=== PATIENT | female | born 1970 | race Asian ===

== ENCOUNTER → 2018-08-18 | Outpatient (CLI) | payer BC ==
[2018-08-18 08:55] LABS: Basophils # (auto) 0.1 uL; Basophils % (auto) 0.9 % (0.0-2.0); Eosinophils # (auto) 0.1 uL; Eosinophils % (auto) 2.3 % (0.0-7.0); Hematocrit 42.2 % (36.0-46.0); Hemoglobin 14.4 g/dL (12.2-16.2); Lymphocytes # (auto) 1.8 uL; Lymphocytes % (auto) 31.9 % (10.0-50.0); Mean Corpuscular Hemoglobin 30.9 pg (28.0-32.0); Mean Corpuscular Hgb Conc. 34.1 g/dL (32.0-36.0); Mean Corpuscular Volume 90.6 fL (80.0-100.0); Monocytes # (auto) 0.4 uL; Neutrophils # (auto) 3.2 uL; Neutrophils % (auto) 56.9 % (37.0-80.0); Platelet Count (auto) 323 10^3/uL (140-450); Red Blood Cells 4.66 10^6/uL (4.0-5.20); Red Cell Distribution Width 13.1 % (11.8-14.3); White Blood Cell 5.6 10^3/uL (4.4-10.8)
[2018-08-18 09:02] LABS: Urine Bacteria FEW /hpf (None Seen); Urine Blood Negative /uL (Negative); Urine Specific Gravity 1.017 (1.001-1.035); Urine WBC <1 /hpf (0 - 5)
[2018-08-18 09:43] LABS: Albumin 4.2 g/dL (3.4-5.0); Potassium 4.1 mmol/L (3.5-5.1)
[2018-08-18 09:52] LABS: BUN/Creatinine Ratio 8.7; Bilirubin, Total 0.9 mg/dL (0.2-1.0); Total Protein 7.7 g/dL (6.4-8.2)
== END | disposition home or self-care (01) ==
LOC: LAB 08:36
PROVIDERS: ATTEND Internal Medicine
DX: D24.9 Benign neoplasm of unspecified breast (principal)
CPT/HCPCS: 36415; 80053; 80061; 81001; 84439; 84443; 85025; 85652

== ENCOUNTER → 2018-09-16 | Outpatient (CLI) | payer BC | END | disposition home or self-care (01) | LOC: US 13:07 | PROVIDERS: ATTEND Internal Medicine | DX: D24.2 Benign neoplasm of left breast (principal); N63.21 Unspecified lump in the left breast, upper outer quadrant | CPT/HCPCS: 10022; 19083; 19084; 76942 ==

== ENCOUNTER → 2018-10-06 | Outpatient (CLI) | payer BC | END | disposition home or self-care (01) | LOC: XYW 11:30 | DX: S02.5XXA Fracture of tooth (traumatic), initial encounter for closed fracture (principal); K05.6 Periodontal disease, unspecified; M27.0 Developmental disorders of jaws; J34.2 Deviated nasal septum; X58.XXXA Exposure to other specified factors, initial encounter; Y93.89 Activity, other specified; Y92.89 Other specified places as the place of occurrence of the external cause; Y99.8 Other external cause status | CPT/HCPCS: 70486 ==

== ENCOUNTER 2021-05-03 06:17 | Inpatient (IN) | payer BC ==
[2021-04-30 10:53] LABS: Basophils # (auto) 0.1 10 ^3/uL (0-0.2); Eosinophils # (auto) 0.2 10 ^3/uL (0-0.8); Eosinophils % (auto) 2.1 % (0.0-7.0); Hematocrit 36.7 % (36.0-46.0); Hemoglobin 12.4 g/dL (12.2-16.2); Lymphocytes # (auto) 2.2 10 ^3/uL (0.4-5.4); Lymphocytes % (auto) 25.3 % (10.0-50.0); Mean Corpuscular Hemoglobin 28.7 pg (28.0-32.0); Mean Corpuscular Hgb Conc. 33.7 g/dL (32.0-36.0); Mean Corpuscular Volume 85.2 fL (80.0-100.0); Monocytes # (auto) 0.4 10 ^3/uL (0-1.3); Monocytes % (auto) 5.1 % (0.0-12.0); Neutrophils # (auto) 5.7 10 ^3/uL (1.6-8.6); Neutrophils % (auto) 66.5 % (37.0-80.0); Nucleated Red Blood Cells % 0.2 %; Red Blood Cells 4.31 10^6/uL (4.0-5.20); Red Cell Distribution Width 15.1 % (11.8-14.3); White Blood Cell 8.5 10^3/uL (4.4-10.8)
[2021-04-30 11:08] LABS: INR 1.09 (0.9-1.15); Partial Thromboplastin Time 28.7 sec (23.6-33.0)
[2021-04-30 11:28] LABS: Albumin 3.9 g/dL (3.4-5.0); Calcium 9.7 mg/dL (8.5-10.1); Potassium 4.1 mmol/L (3.5-5.1)
[2021-04-30 11:31] LABS: Bilirubin, Total 0.3 mg/dL (0.2-1.0); Total Protein 7.6 g/dL (6.4-8.2)
[~2021-05-03] VITALS: Ht 157.5 cm; Wt 59.1 kg
[~2021-05-03 06:17] MED LIST: FER325T PO; MULT-690 PO
[2021-05-03] MEDS ORDERED: ceFAZolin 1GM/50ML 50 ML IV ONE (06:27)
[2021-05-03] MEDS ORDERED: BUPIVACAINE 0.25% INJ 50ML VIAL ONE (07:03)
[2021-05-03] MEDS ORDERED: MIDAZOLAM HCL 2MG/2ML 2ml VIAL (1mg/ml) ONE (07:19)
[2021-05-03] MEDS ORDERED: fentaNYL CITRATE 100 MCG/2 ML VL ONE (07:19)
[2021-05-03] MEDS ORDERED: MEPERIDINE HCL (50 MG/ML) 1 ML VIAL ONE (07:19)
[2021-05-03] MEDS ORDERED: FUROSEMIDE 20 MG/2 ML VIAL ONE (07:20)
[2021-05-03] MEDS ORDERED: DexAMETHasone SOD PHOS 10MG/1ML VIAL INJ ONE (07:20)
[2021-05-03] MEDS ORDERED: PROPOFOL 10 MG/ML 20 ML IV ONE (07:26)
[2021-05-03] MEDS ORDERED: fentaNYL CITRATE 5 ML ONE (07:27)
[2021-05-03] MEDS ORDERED: ROCURONIUM 10MG/ML 10ML VIAL IV ONE (08:04)
[2021-05-03] MEDS ORDERED: MORPHINE SULFATE 4 MG/ML SYR/VIAL IV PRN ×2 (09:00→09:30)
[2021-05-03] MEDS ORDERED: NITROGLYCERIN 0.4 MG SL TAB SL PRN (09:00)
[2021-05-03] MEDS ORDERED: MORPHINE SULFATE INJECTION 2 MG/ML SYRG IV PRN ×2 (09:00)
[2021-05-03] MEDS ORDERED: MIDAZOLAM HCL 2MG/2ML 2ml VIAL (1mg/ml) IV PRN (09:30)
[2021-05-03] MEDS ORDERED: HYDROmorphone HCL 2 MG/ML VL IV PRN (09:30)
[2021-05-03] MEDS ORDERED: ePHEDrine SULFATE 50 MG/ML AMP IV PRN (09:30)
[2021-05-03] MEDS ORDERED: KETOROLAC TROMETH 30 MG/ML 1ML VIAL IV ONE (09:30)
[2021-05-03] MEDS ORDERED: ONDANSETRON HCL 4 MG/2 ML VIAL IV PRN (09:30)
[2021-05-03] MEDS ORDERED: LABETALOL HCL 5 MG/ML 4ML SYRINGE IV PRN (09:30)
[2021-05-03 11:39] VITALS: BP 109/77
[2021-05-03 13:00] VITALS: BP 123/77
[2021-05-03] MEDS: ceFAZolin 1GM/50ML 50 ML IV SCH ×2 (14:00→22:24)
[2021-05-03] MEDS: HYDROcodone-ACET 5/325MG TAB PO PRN (14:27)
[2021-05-03] MEDS: ONDANSETRON HCL 4 MG/2 ML VIAL IV PRN ×2 (14:28→21:56)
[2021-05-03 16:42] VITALS: BP 136/73
[2021-05-03 22:00] VITALS: BP 130/80
[2021-05-03] MEDS: GABAPENTIN 100 MG CAP PO SCH (22:00)
[2021-05-03] MEDS: KETOROLAC TROMETH 30 MG/ML 1ML VIAL IV PRN (22:24)
[2021-05-04 05:00] VITALS: BP 108/73
[2021-05-04] MEDS: ceFAZolin 1GM/50ML 50 ML IV SCH (06:35)
[2021-05-04 09:00] VITALS: BP 131/80
[2021-05-04] MEDS: KETOROLAC TROMETH 30 MG/ML 1ML VIAL IV PRN ×2 (12:10→18:21)
[2021-05-04 12:40] VITALS: BP 140/72
[2021-05-04] MEDS: DOCUSATE SOD 100 MG CAP PO SCH ×2 (14:08→21:31)
[2021-05-04 17:00] VITALS: BP 122/81
[2021-05-04] MEDS: GABAPENTIN 100 MG CAP PO SCH (21:31)
[2021-05-04 22:00] VITALS: BP 119/70
[2021-05-05] MEDS: KETOROLAC TROMETH 30 MG/ML 1ML VIAL IV PRN ×2 (00:02→06:12)
[2021-05-05 05:17] VITALS: BP 118/89
[2021-05-05] MEDS: DOCUSATE SOD 100 MG CAP PO SCH (08:32)
[2021-05-05] MEDS ORDERED: HYDR-4902 PO (08:35)
[2021-05-05] MEDS ORDERED: DOCU-94 PO (08:35)
[2021-05-05] MEDS ORDERED: IBUP800T27 PO (08:35)
[2021-05-05] MEDS ORDERED: ONDA-144 PO (08:35)
[2021-05-05] MEDS ORDERED: TRAM50TA2 PO (08:42)
[2021-05-05 09:00] VITALS: BP 121/90
[2021-05-05] MEDS: HYDROcodone-ACET 5/325MG TAB PO PRN (09:47)
== END 2021-05-05 11:35 | disposition home or self-care (01) | DRG 743 ==
LOC: SUR 06:17 → EEVIPCON 08:56 → OVERFLOW 08:56 → CENTRAL 09:32
PROVIDERS: ADMIT Obstetrics & Gynecology; ATTEND Obstetrics & Gynecology
PROC: 0UT70ZZ Resection of Bilateral Fallopian Tubes, Open Approach (ICD-10-PCS; 2021-05-03)
PROC: 0UT20ZZ Resection of Bilateral Ovaries, Open Approach (ICD-10-PCS; 2021-05-03)
PROC: 0UTC0ZZ Resection of Cervix, Open Approach (ICD-10-PCS; 2021-05-03)
PROC: 0UT90ZZ Resection of Uterus, Open Approach (ICD-10-PCS; principal; 2021-05-03 07:27)
DX: N93.9 Abnormal uterine and vaginal bleeding, unspecified (principal); N85.2 Hypertrophy of uterus; Z20.822 Contact with and (suspected) exposure to COVID-19
CPT/HCPCS: 36415; 80053; 81025; 84702; 85025; 85610; 85730; 86850; 86900; 86901; G0378; J0690; J1100; J1885; J2250; J2405; J2704; J3490

== ENCOUNTER → 2021-06-14 | Outpatient (CLI) | payer BC ==
[~2021-06-14] MED LIST changes: +DOCU-94 PO; +IBUP800T27 PO; +ONDA-144 PO
[2021-06-14 11:04] LABS: Basophils # (auto) 0.1 10 ^3/uL (0-0.2); Basophils % (auto) 1.6 % (0.0-2.0); Eosinophils # (auto) 0.2 10 ^3/uL (0-0.8); Eosinophils % (auto) 2.8 % (0.0-7.0); Hematocrit 39.2 % (36.0-46.0); Hemoglobin 13.2 g/dL (12.2-16.2); Lymphocytes # (auto) 2.2 10 ^3/uL (0.4-5.4); Lymphocytes % (auto) 37.3 % (10.0-50.0); Mean Corpuscular Hemoglobin 28.6 pg (28.0-32.0); Mean Corpuscular Hgb Conc. 33.8 g/dL (32.0-36.0); Mean Corpuscular Volume 84.6 fL (80.0-100.0); Monocytes # (auto) 0.4 10 ^3/uL (0-1.3); Monocytes % (auto) 6.6 % (0.0-12.0); Neutrophils # (auto) 3.1 10 ^3/uL (1.6-8.6); Neutrophils % (auto) 51.7 % (37.0-80.0); Nucleated Red Blood Cells % 0.1 %; Red Blood Cells 4.63 10^6/uL (4.0-5.20); Red Cell Distribution Width 14.6 % (11.8-14.3)
== END | disposition home or self-care (01) ==
LOC: LAB 10:28
PROVIDERS: ATTEND Obstetrics & Gynecology
DX: D69.9 Hemorrhagic condition, unspecified (principal)
CPT/HCPCS: 36415; 85025

== ENCOUNTER → 2021-10-16 | Outpatient (CLI) | payer BC ==
[2021-10-16 11:59] LABS: Basophils # (auto) 0.1 10 ^3/uL (0-0.2); Basophils % (auto) 0.7 % (0.0-2.0); Eosinophils # (auto) 0.2 10 ^3/uL (0-0.8); Eosinophils % (auto) 3.1 % (0.0-7.0); Hematocrit 37.8 % (36.0-46.0); Hemoglobin 12.9 g/dL (12.2-16.2); Lymphocytes # (auto) 1.7 10 ^3/uL (0.4-5.4); Lymphocytes % (auto) 23.1 % (10.0-50.0); Mean Corpuscular Hgb Conc. 34.1 g/dL (32.0-36.0); Mean Corpuscular Volume 87.9 fL (80.0-100.0); Monocytes # (auto) 0.4 10 ^3/uL (0-1.3); Monocytes % (auto) 5.1 % (0.0-12.0); Neutrophils # (auto) 5.1 10 ^3/uL (1.6-8.6); Nucleated Red Blood Cells % 0.1 %; Red Blood Cells 4.31 10^6/uL (4.0-5.20); Red Cell Distribution Width 13.3 % (11.8-14.3); White Blood Cell 7.5 10^3/uL (4.4-10.8)
[2021-10-16 12:09] LABS: Urine Blood Negative /uL (Negative); Urine Specific Gravity 1.023 (1.001-1.035)
[2021-10-16 12:12] LABS: Albumin 3.5 g/dL (3.4-5.0); Calcium 9.5 mg/dL (8.5-10.1); Potassium 3.7 mmol/L (3.5-5.1)
[2021-10-16 12:16] LABS: Bilirubin, Total 0.5 mg/dL (0.2-1.0); Total Protein 8.2 g/dL (6.4-8.2)
== END | disposition home or self-care (01) ==
LOC: LAB 11:38
PROVIDERS: ATTEND Internal Medicine
DX: R53.83 Other fatigue (principal)
CPT/HCPCS: 36415; 80053; 81003; 85025; C9803; U0003

== ENCOUNTER → 2021-10-25 | Outpatient (CLI) | payer BC ==
[2021-10-25 11:16] LABS: Basophils # (auto) 0.1 10 ^3/uL (0-0.2); Basophils % (auto) 0.6 % (0.0-2.0); Eosinophils # (auto) 0.1 10 ^3/uL (0-0.8); Hematocrit 37.8 % (36.0-46.0); Hemoglobin 12.6 g/dL (12.2-16.2); Lymphocytes # (auto) 1.7 10 ^3/uL (0.4-5.4); Lymphocytes % (auto) 17.3 % (10.0-50.0); Mean Corpuscular Volume 87.4 fL (80.0-100.0); Red Blood Cells 4.32 10^6/uL (4.0-5.20)
[2021-10-25 11:20] LABS: Eosinophils % (auto) 1.1 % (0.0-7.0); Mean Corpuscular Hemoglobin 29.2 pg (28.0-32.0); Mean Corpuscular Hgb Conc. 33.4 g/dL (32.0-36.0); Monocytes # (auto) 0.5 10 ^3/uL (0-1.3); Monocytes % (auto) 5.5 % (0.0-12.0); Neutrophils # (auto) 7.4 10 ^3/uL (1.6-8.6); Neutrophils % (auto) 75.5 % (37.0-80.0); Red Cell Distribution Width 12.8 % (11.8-14.3); White Blood Cell 9.8 10^3/uL (4.4-10.8)
[2021-10-25 11:22] LABS: Urine Blood Negative /uL (Negative)
== END | disposition home or self-care (01) ==
LOC: LAB 10:57
PROVIDERS: ATTEND Internal Medicine
DX: R53.83 Other fatigue (principal)
CPT/HCPCS: 36415; 81003; 83615; 85025; 85652; 86141

== ENCOUNTER → 2021-11-08 | Outpatient (CLI) | payer BC ==
[2021-11-08 09:00] LABS: Basophils # (auto) 0 10 ^3/uL (0-0.2); Eosinophils # (auto) 0.1 10 ^3/uL (0-0.8); Hemoglobin 12.2 g/dL (12.2-16.2); Red Cell Distribution Width 12.8 % (11.8-14.3)
[2021-11-08 09:02] LABS: Basophils % (auto) 0.4 % (0.0-2.0); Eosinophils % (auto) 2.3 % (0.0-7.0); Hematocrit 35.9 % (36.0-46.0); Lymphocytes # (auto) 1.9 10 ^3/uL (0.4-5.4); Lymphocytes % (auto) 30.4 % (10.0-50.0); Mean Corpuscular Hemoglobin 29.1 pg (28.0-32.0); Mean Corpuscular Volume 85.7 fL (80.0-100.0); Monocytes # (auto) 0.4 10 ^3/uL (0-1.3); Monocytes % (auto) 7.3 % (0.0-12.0); Neutrophils # (auto) 3.7 10 ^3/uL (1.6-8.6); Neutrophils % (auto) 59.6 % (37.0-80.0); Red Blood Cells 4.19 10^6/uL (4.0-5.20); White Blood Cell 6.2 10^3/uL (4.4-10.8)
[2021-11-08 09:12] LABS: Urine Bacteria NONE SEEN /hpf (None Seen); Urine Blood Negative /uL (Negative); Urine Mucus FEW (None Seen); Urine WBC 8 /hpf (0 - 5)
[2021-11-08 09:32] LABS: Calcium 9.9 mg/dL (8.5-10.1); Potassium 4.1 mmol/L (3.5-5.1)
[2021-11-08 09:38] LABS: Albumin 3.2 g/dL (3.4-5.0); BUN/Creatinine Ratio 11.3; Bilirubin, Total 0.6 mg/dL (0.2-1.0); Total Protein 8.1 g/dL (6.4-8.2); Uric Acid 4.9 mg/dL (2.6-6.0)
== END | disposition home or self-care (01) ==
LOC: LAB 08:20
PROVIDERS: ATTEND Internal Medicine
DX: R50.9 Fever, unspecified (principal); E55.9 Vitamin D deficiency, unspecified
CPT/HCPCS: 36415; 80053; 80061; 81001; 82306; 83540; 84439; 84443; 84550; 85025; 85652; 86431; 87040

== ENCOUNTER → 2021-12-13 | Outpatient (CLI) | payer BC | END | disposition home or self-care (01) | LOC: LAB 11:13 | PROVIDERS: ATTEND Internal Medicine | DX: E03.9 Hypothyroidism, unspecified (principal); D75.839 Thrombocytosis, unspecified | CPT/HCPCS: 36415; 83540; 84443; 84481; 85049 ==

== ENCOUNTER → 2022-01-15 | Outpatient (CLI) | payer BC | END | disposition home or self-care (01) | LOC: LAB 11:20 | PROVIDERS: ATTEND Internal Medicine | DX: E03.9 Hypothyroidism, unspecified (principal) | CPT/HCPCS: 36415; 84439; 84443 ==

== ENCOUNTER → 2022-04-11 | Outpatient (CLI) | payer BC | END | disposition home or self-care (01) | LOC: LAB 11:24 | PROVIDERS: ATTEND Internal Medicine | DX: E03.8 Other specified hypothyroidism (principal) | CPT/HCPCS: 36415; 84439; 84443 ==

== ENCOUNTER → 2023-04-08 | Outpatient (CLI) | payer BC ==
[~2023-04-08] MED LIST changes: +IBUP-1456 PO; -IBUP800T27 PO
[2023-04-08 08:59] LABS: Basophils # (auto) 0 10 ^3/uL (0-0.2); Basophils % (auto) 0.7 % (0.0-2.0); Eosinophils # (auto) 0.1 10 ^3/uL (0-0.8); Eosinophils % (auto) 2.1 % (0.0-7.0); Hemoglobin 14.3 g/dL (12.2-16.2); Lymphocytes # (auto) 2.4 10 ^3/uL (0.4-5.4); Lymphocytes % (auto) 37.9 % (10.0-50.0); Mean Corpuscular Hemoglobin 30.7 pg (28.0-32.0); Mean Corpuscular Volume 90.3 fL (80.0-100.0); Monocytes # (auto) 0.5 10 ^3/uL (0-1.3); Monocytes % (auto) 8.6 % (0.0-12.0); Neutrophils # (auto) 3.2 10 ^3/uL (1.6-8.6); Neutrophils % (auto) 50.7 % (37.0-80.0); Nucleated Red Blood Cells % 0.1 %; Red Blood Cells 4.65 10^6/uL (4.0-5.20); Red Cell Distribution Width 12.9 % (11.8-14.3); White Blood Cell 6.3 10^3/uL (4.4-10.8)
[2023-04-08 09:22] LABS: Urine Bacteria NONE SEEN /hpf (None Seen); Urine Blood Negative /uL (Negative); Urine Clarity Clear (Clear); Urine Color Colorless (Yellow); Urine Protein, UAD Negative (Negative); Urine Specific Gravity 1.006 (1.001-1.035); Urine Urobilinogen Normal (Negative); Urine WBC 5 /hpf (0 - 5)
[2023-04-08 09:28] LABS: Alanine Aminotransferase 21 U/L (7-40); Albumin 4.9 g/dL (3.2-4.8); Alkaline Phosphatase 90 U/L (46-116); Anion Gap 6 (5-15); Aspartate Aminotransferase 19 U/L (13-40); BUN/Creatinine Ratio 8.9 (10.0-20.0); Blood Urea Nitrogen 7 mg/dL (9-23); Calcium 9.8 mg/dL (8.5-10.1); Carbon Dioxide 28 mmol/L (20-30); Chloride 104 mmol/L (98-107); Glucose 90 mg/dL (74-106); LDL Cholesterol 140 mg/dL (< 100); Potassium 4.1 mmol/L (3.5-5.1); Sodium 138 mmol/L (136-145); Triglycerides 75 mg/dL (< 150)
[2023-04-08 09:29] LABS: Bilirubin, Total 0.7 mg/dL (0.2-1.0); Cholesterol 200 mg/dL (< 200); HDL Cholesterol 55 mg/dL (40-59); Total Protein 7.5 g/dL (5.7-8.2)
[2023-04-08 09:40] LABS: Erythrocyte Sedimentation Rate 10 mm/hr (0-20)
== END | disposition home or self-care (01) ==
LOC: LAB 08:45
PROVIDERS: ATTEND Internal Medicine
DX: Z12.11 Encounter for screening for malignant neoplasm of colon (principal); E56.9 Vitamin deficiency, unspecified; Z78.0 Asymptomatic menopausal state
CPT/HCPCS: 36415; 80053; 80061; 81001; 82306; 84439; 84443; 85025; 85652